=== PATIENT | male | born 1975 | race American Indian/Alaskan Native ===

== ENCOUNTER 2017-08-25 13:21 | Emergency (ER) | payer SELFPAY ==
[2017-08-25 13:44] LABS: Basophils % (Auto) 0.5 % (0.0-1.8); Eosinophils % (Auto) 0.2 % (0.0-4.3); Hematocrit 43.9 % (35.5-45.6); Hemoglobin 14.8 gm/dl (11.8-15.2); Lymphocytes # (Auto) 0.8 K/mm3 (1.2-5.4); Lymphocytes % (Auto) 9.6 % (13.4-35.0); Mean Corpuscular HGB Conc 34 % (32-34); Mean Corpuscular Hemoglobin 32 pg (28-32); Mean Corpuscular Volume 95 fl (84-94); Monocytes # (Auto) 0.8 K/mm3 (0.0-0.8); Monocytes % (Auto) 9.7 % (0.0-7.3); Platelet Count 239 K/mm3 (140-440); Red Blood Count 4.63 M/mm3 (3.65-5.03)
[2017-08-25 14:56] LABS: Alanine Aminotransferase 13 units/L (7-56); BUN/Creatinine Ratio 18; Blood Urea Nitrogen 14 mg/dL (9-20); Calcium 8.7 mg/dL (8.4-10.2); Hemolysis Index 15
[2017-08-25 16:03] LABS: Bilirubin,Urine NEG (Negative); Color,Urine Yellow (Yellow)
[2017-08-25 16:04] LABS: Blood,Urine MOD (Negative); Mucus,Urine FEW /HPF; Protein,Urine <15 mg/dL mg/dL (Negative); Urobilinogen,Urine < 2.0 mg/dL (<2.0)
--- NOTE | 2017-08-25 17:29 | Emergency Department Report ---
HPI - General Chief Complaint: Abdominal Pain Time Seen by Provider: 08/25/17 16:52 - HPI HPI: 42-year-old -[place] male presents the emergency department with complaint of sided flank pain with some radiation towards the left lower quadrant of the abdomen that started earlier today. It is associated with nausea and vomiting. He received Zofran, IV fluid and Toradol from EMS and says he is feeling some improvement and no longer has any nausea. He says "I think it is either food poisoning or kidney stones." He does not have a primary care physician. She denies any other past medical history. No recent travel or sick contacts at home. ED Past Medical Hx - Past Medical History Additional medical history: kidney stones - Social History Smoking Status: Current Every Day Smoker Substance Use Type: None - Medications Home Medications: Home Medications Medication Instructions Recorded Confirmed Last Taken Type HYDROcodone/APAP 5-325 [[place] 1 each PO Q6HR PRN #10 tablet 08/25/17 Unknown Rx 5/325] Ondansetron [Zofran Odt] 4 mg PO Q8H PRN #10 tab.rapdis 08/25/17 Unknown Rx Sulfamethoxazole/Trimethoprim 1 each PO BID #10 tablet 08/25/17 Unknown Rx [Bactrim DS TAB] Tamsulosin HCl [Flomax] 0.4 mg PO QDAY #5 cap.er.24h 08/25/17 Unknown Rx ED Review of Systems ROS: Stated complaint: FOOD POISONING Other details as noted in HPI Comment: All other systems reviewed and negative Constitutional: denies: chills, fever Eyes: denies: eye pain, eye discharge, vision change ENT: denies: ear pain, throat pain Respiratory: denies: cough, shortness of breath, wheezing Cardiovascular: denies: chest pain, palpitations Gastrointestinal: abdominal pain (and flank), nausea, vomiting Genitourinary: denies: urgency, dysuria Musculoskeletal: denies: back pain, joint swelling, arthralgia Skin: denies: rash, lesions Neurological: denies: headache, weakness, paresthesias Physical Exam - Physical Exam Vital Signs: Vital Signs 08/25/17 08/25/17 13:26 16:47 Temperature 97.7 F Pulse Rate 52 L Respiratory 18 16 Rate Blood Pressure 158/86 O2 Sat by Pulse 99 99 Oximetry Physical Exam: GENERAL: The patient is well-developed well-nourished. HENT: Normocephalic. Atraumatic. Patient has moist mucous membranes. EYES: Extraocular motions are intact. NECK: Supple. Trachea is midline. CHEST/LUNGS: Clear to auscultation. There is no respiratory distress noted. HEART/CARDIOVASCULAR: Regular. There is no tachycardia. There is no murmur. ABDOMEN: Abdomen is soft, nontender. Patient has normal bowel sounds. There is no abdominal distention. SKIN: Skin is warm and dry. NEURO: The patient is awake, alert, and oriented. The patient is cooperative. The patient has no focal neurologic deficits. The patient has normal speech. MUSCULOSKELETAL: There is no tenderness or deformity. There is no limitation range of motion. There is no evidence of acute injury. ED Course Vital Signs 08/25/17 08/25/17 13:26 16:47 Temperature 97.7 F Pulse Rate 52 L Respiratory 18 16 Rate Blood Pressure 158/86 O2 Sat by Pulse 99 99 Oximetry ED Medical Decision Making - Lab Data Result diagrams: 08/25/17 13:34 08/25/17 13:34 - Radiology Data Radiology results: report reviewed, image reviewed interpreted by me: Abdominal x-ray shows nonspecific nonobstructive bowel gas EXAM: CT ABDOMEN PELVIS WO CON HISTORY: left flank pain, hx of nephrolithiasis TECHNIQUE: CT images obtained through the Abdomen and Pelvis without contrast. Transaxial,coronal and sagittal reformats are provided. PRIORS: None. FINDINGS: Imaged intrathoracic contents are unremarkable. Mild edematous enlargement of the left kidney. There is moderate left hydroureteronephrosis due to a 6 millimeter obstructing stone in the distal left ureter on axial series 3, image 134. Additional nonobstructive stones are present in both collecting systems measuring up to 4 millimeters. No right-sided hydroureteronephrosis. No stones in the urinary bladder. Kidneys are normal in axis and position. The liver, gallbladder, pancreas, spleen, and adrenal glands demonstrate a normal noncontrast appearance. Hollow enteric organs are normal in course and caliber. Appendix is normal. No intra-abdominal free air/fluid or lymphadenopathy. Aorta is normal in course and caliber. Superficial soft tissues are unremarkable. No acute or aggressive appearing skeletal findings. IMPRESSION: Moderate left hydroureteronephrosis due to a 6 millimeter distal ureteral obstructing stone. There are additional nonobstructive stones in both collecting systems measuring up to 4 millimeters. Transcribed By: MB Dictated By: SADIA KIMBLE MD Electronically Authenticated By: SADIA KIMBLE MD Signed Date/Time: 08/25/17 870 - Medical Decision Making Patient presented with some left flank pain, nausea and vomiting. However the symptoms stopped after getting some treatment in route with EMS. Labs are mostly unremarkable. Since he has a history of kidney stones, CT of the abdomen and pelvis was done that came back showing left distal 6 mm ureter stone with some hydronephrosis. Since the patient is feeling improved, the stone is already in the distal ureter, there is no infection, leukocytosis or fever, we will attempt to treat patient outpatient at this time. He will go home with a strainer, antibiotics, Flomax and pain medication and a referral for urology. He will return to the ER with any worsening of his symptoms, development of fever or intractable nausea/vomiting, or with any acute distress. He understands and agrees to the plan. - Differential Diagnosis nephrolithiasis, food poisoning, gastritis Critical Care Time: No Critical care attestation.: If time is entered above; I have spent that time in minutes in the direct care of this critically ill patient, excluding procedure time. ED Disposition Clinical Impression: Nephrolithiasis, Left flank pain Disposition: - TO HOME OR SELFCARE Is pt being admited?: No Condition: Stable Instructions: Kidney Stones (ED), Renal Colic (ED), How to Strain Your Urine ( ED) Additional Instructions: Please follow up with a urologist in the next few days without fail. I have given you a referral for a local urologist, Dr. Xiao. Strain your urine to look for the kidney stone. Return to the emergency department with any worsening of your discomfort, development of fever, persistent nausea and vomiting, or with any acute distress. You have been prescribed a medication that is sedating and therefore should not be taken prior to driving, working, and responsible for children and in no way should be mixed with alcohol of any quantity. Prescriptions: HYDROcodone/APAP 5-325 [[place] 5/325] 1 each PO Q6HR PRN #10 tablet PRN Reason: Pain Ondansetron [Zofran Odt] 4 mg PO Q8H PRN #10 tab.rapdis PRN Reason: Nausea Sulfamethoxazole/Trimethoprim [Bactrim DS TAB] 1 each PO BID #10 tablet Tamsulosin HCl [Flomax] 0.4 mg PO QDAY #5 cap.er.24h Referrals: KRISTINA XIAO MD [Staff Physician] - [facility] Time of Disposition: 19:19
--- NOTE | 2017-08-25 18:58 | Cat Scan Report ---
FINAL REPORT EXAM: CT ABDOMEN PELVIS WO CON HISTORY: left flank pain, hx of nephrolithiasis TECHNIQUE: CT images obtained through the Abdomen and Pelvis without contrast. Transaxial,coronal and sagittal reformats are provided. PRIORS: None. FINDINGS: Imaged intrathoracic contents are unremarkable. Mild edematous enlargement of the left kidney. There is moderate left hydroureteronephrosis due to a 6 millimeter obstructing stone in the distal left ureter on axial series 3, image 134. Additional nonobstructive stones are present in both collecting systems measuring up to 4 millimeters. No right-sided hydroureteronephrosis. No stones in the urinary bladder. Kidneys are normal in axis and position. The liver, gallbladder, pancreas, spleen, and adrenal glands demonstrate a normal noncontrast appearance. Hollow enteric organs are normal in course and caliber. Appendix is normal. No intra-abdominal free air/fluid or lymphadenopathy. Aorta is normal in course and caliber. Superficial soft tissues are unremarkable. No acute or aggressive appearing skeletal findings. IMPRESSION: Moderate left hydroureteronephrosis due to a 6 millimeter distal ureteral obstructing stone. There are additional nonobstructive stones in both collecting systems measuring up to 4 millimeters.
[2017-08-25 18:59] VITALS: BP 138/73
--- NOTE | 2017-08-25 19:31 | XRay Report ---
FINAL REPORT PROCEDURE: XR ABDOMEN 2V TECHNIQUE: Abdominal series, including supine and upright AP views. HISTORY: Abd pain COMPARISON: No prior studies are available for comparison. FINDINGS: Bowel gas pattern:Intestinal gas distributed predominantly in nondistended colon and rectum. Mild degree residual stool is identified. A 3 millimeter calcific density is noted in the left upper quadrant projected over the left renal shadow. Multiple additional smaller calcific densities are identified in the expected location of bilateral kidneys... Masses or calcifications:None . Bony structures:No significant abnormality . Pneumoperitoneum:None . Other:No significant findings . IMPRESSION: Nonspecific intestinal gas pattern. Multiple small calcific densities bilaterally in the upper abdomen most likely represent renal calculi..
== END 2017-08-25 19:42 | disposition home or self-care (01) ==
LOC: ED 13:21
DX: N20.0 Calculus of kidney (principal); F17.200 Nicotine dependence, unspecified, uncomplicated
CPT/HCPCS: 36415; 74019; 74176; 80053; 81001; 85025; 99285

== ENCOUNTER 2018-01-20 13:44 | Emergency (ER) | payer SELFPAY ==
[2018-01-20 14:07] VITALS: BP 133/82
[2018-01-20] MEDS ORDERED: TORADOL ONE (14:07)
[2018-01-20] MEDS ORDERED: ZOFRAN ODT ONE (14:07)
[2018-01-20] MEDS ORDERED: TORADOL IM ONE (14:14)
[2018-01-20] MEDS ORDERED: ZOFRAN ODT PO ONE (14:14)
--- NOTE | 2018-01-20 16:19 | Emergency Department Report ---
ED General Adult HPI - General Chief complaint: Abdominal Pain Stated complaint: KIDNEY STONES Time Seen by Provider: 01/20/18 16:09 Source: EMS Mode of arrival: Wheelchair Limitations: No Limitations - History of Present Illness Initial comments: Patient is a 42-year-old male with past history of kidney stones who is complaining of left flank pain. Patient's denies any nausea vomiting fever or dysuria. Patient states pain is 10 out of 10 in severity. Patient's medications in the past. Severity scale (0 -10): 10 - Related Data Previous Rx's Medication Instructions Recorded Last Taken Type HYDROcodone/APAP 5-325 [[place] 1 each PO Q6HR PRN #10 tablet 08/25/17 Unknown Rx 5/325] Ondansetron [Zofran Odt] 4 mg PO Q8H PRN #10 tab.rapdis 08/25/17 Unknown Rx Sulfamethoxazole/Trimethoprim 1 each PO BID #10 tablet 08/25/17 Unknown Rx [Bactrim DS TAB] Tamsulosin HCl [Flomax] 0.4 mg PO QDAY #5 cap.er.24h 08/25/17 Unknown Rx Ketorolac [Toradol] 10 mg PO Q6H PRN #14 tablet 01/20/18 Unknown Rx Allergies Allergy/AdvReac Type Severity Reaction Status Date / Time iodine Allergy Unknown Verified 01/20/18 14:07 shellfish derived Allergy Unknown Verified 01/20/18 14:07 ED Review of Systems ROS: Stated complaint: KIDNEY STONES Other details as noted in HPI Comment: All other systems reviewed and negative ED Past Medical Hx - Past Medical History Additional medical history: kidney stones - Social History Smoking Status: Current Every Day Smoker Substance Use Type: None - Medications Home Medications: Home Medications Medication Instructions Recorded Confirmed Last Taken Type HYDROcodone/APAP 5-325 [[place] 1 each PO Q6HR PRN #10 tablet 08/25/17 Unknown Rx 5/325] Ondansetron [Zofran Odt] 4 mg PO Q8H PRN #10 tab.rapdis 08/25/17 Unknown Rx Sulfamethoxazole/Trimethoprim 1 each PO BID #10 tablet 08/25/17 Unknown Rx [Bactrim DS TAB] Tamsulosin HCl [Flomax] 0.4 mg PO QDAY #5 cap.er.24h 08/25/17 Unknown Rx Ketorolac [Toradol] 10 mg PO Q6H PRN #14 tablet 01/20/18 Unknown Rx ED Physical Exam - General Limitations: No Limitations General appearance: alert, in no apparent distress - Head Head exam: Present: atraumatic, normocephalic - Eye Eye exam: Present: normal appearance - ENT ENT exam: Present: mucous membranes moist - Neck Neck exam: Present: normal inspection - Respiratory Respiratory exam: Present: normal lung sounds bilaterally. Absent: respiratory distress - Cardiovascular Cardiovascular Exam: Present: regular rate, normal rhythm. Absent: systolic murmur, diastolic murmur, rubs, gallop - GI/Abdominal GI/Abdominal exam: Present: soft, normal bowel sounds - Rectal Rectal exam: Present: deferred - Extremities Exam Extremities exam: Present: normal inspection - Back Exam Back exam: Present: normal inspection - Neurological Exam Neurological exam: Present: alert, oriented X3 - Psychiatric Psychiatric exam: Present: normal affect, normal mood - Skin Skin exam: Present: warm, dry, intact, normal color. Absent: rash ED Course Vital Signs 01/20/18 01/20/18 14:04 14:15 Temperature 97.5 F L Pulse Rate 62 Respiratory 18 18 Rate Blood Pressure 133/82 O2 Sat by Pulse 100 Oximetry ED Medical Decision Making - Medical Decision Making Patient was premedicated before getting to his room. When I went to see the patient patient states his pain is now completely resolved. Patient feels that he may have passed stone. Patient was only given Toradol for pain. Patient be discharged home.. Critical care attestation.: If time is entered above; I have spent that time in minutes in the direct care of this critically ill patient, excluding procedure time. ED Disposition Clinical Impression: Kidney stone on right side Disposition: DC-01 TO HOME OR SELFCARE Is pt being admited?: No Does the pt Need Aspirin: No Condition: Stable Instructions: Kidney Stones (ED)
== END 2018-01-20 16:18 | disposition home or self-care (01) ==
LOC: ED 13:44
DX: N20.0 Calculus of kidney (principal); F17.200 Nicotine dependence, unspecified, uncomplicated
CPT/HCPCS: 96372; 99283; J1885; Q0162